=== PATIENT | male | born 1980 | race Caucasian/White ===

== ENCOUNTER 2019-01-26 22:52 | Emergency (ER) | payer OTHER ==
[~2019-01-26] VITALS: Ht 190.5 cm; Wt 127.0 kg
[~2019-01-26 22:52] MED LIST: ASPIR 8181 M1 PO; DOXYCYCLINE 10100 MG PO; FLEXERIL PO; IBUPROFEN 800800 M1 PO; MEDROLDOSEPACK PO; NEXIUM40 MG PO; NOHOMEMEDICATIONS; PROAIR HFA8.5 GM INH; ULTRAM 50MG TAB50 MG PO
[2019-01-26 22:55] VITALS: BP 127/90
[2019-01-26] MEDS ORDERED: FAMCYCLOVIR 50500 M1 PO (23:16)
== END 2019-01-26 23:21 | disposition home or self-care (01) ==
LOC: M.ERS 22:52
DX: B02.9 Zoster without complications (principal); G47.30 Sleep apnea, unspecified; Z90.49 Acquired absence of other specified parts of digestive tract